=== PATIENT | female | born 1960 | race Caucasian/White ===

== ENCOUNTER 2017-07-27 19:05 | Emergency (ER) | payer OTHER ==
[~2017-07-27] VITALS: Ht 167.6 cm; Wt 79.0 kg
[2017-07-27 19:10] VITALS: Ht 167.6 cm; Wt 79.0 kg
[2017-07-27] MEDS ORDERED: ALBUTEROL 0.083% (NEB) 2.5 MG/3 ML AMP NEB STA (20:11)
[2017-07-27] MEDS ORDERED: DEXAMETHASONE 10 MG/ML 1 ML INJ IM STA (20:11)
[2017-07-27] MEDS ORDERED: IPRATROPIUM (NEB) 0.5 MG/2.5 ML AMP NEB STA (20:11)
--- NOTE | 2017-07-27 20:11 | ERD ---
ER Documentation Chief Complaint Chief Complaint cough x 2 weeks ,sob today HPI 57-year-old female presents to emergency department with 2 week history of cough , wheezing SOB, pt has asthma, on QVAR and albuterol ROS All systems reviewed and are negative except as per history of present illness. Allergies Allergies: Coded Allergies: almond (Verified Allergy, Unknown, 07/27/17) Physical Exam Vitals Vital Signs Date Time Temp Pulse Resp B/P Pulse Ox O2 Delivery O2 Flow Rate FiO2 07/27/17 20:45 103 20 95 21 07/27/17 20:35 Nasal Cannula 2 07/27/17 20:35 Nasal Cannula 2.0 07/27/17 19:10 99.3 109 20 176/98 96 Physical Exam Const: Well-nourished, well-appearing, 57-year-old female coughing, audible wheeze, in no acute distress, no tripoding. Head: Eyes: Normal Conjunctiva PERRLA, EOMI ENT: Normal External Ears, Nose and Mouth. Neck: Resp: Tight inspiratory expiratory wheeze, diminished bases, loose movable rhonchi with cough Cardio: Regular rate and rhythm, no murmurs Abd: Soft, non tender, non distended no epigastric tenderness Skin: Back: Ext: Neur: Awake and alert Psych: Normal Mood and Affect Result Diagram: 07/27/17 2100 Results 24 hrs Laboratory Tests Test 07/27/17 21:00 White Blood Count 11.010^3/ul Red Blood Count 5.3710^6/ul Hemoglobin 14.8g/dl Hematocrit 44.7% Mean Corpuscular Volume 83.2fl Mean Corpuscular Hemoglobin 27.6pg Mean Corpuscular Hemoglobin Concent 33.1g/dl Red Cell Distribution Width 13.5% Platelet Count 42760^3/UL Mean Platelet Volume 10.1fl Neutrophils % 51.7% Lymphocytes % 34.9% Monocytes % 6.4% Eosinophils % 6.2% Basophils % 0.4% Nucleated Red Blood Cells % 0.0/100WBC Neutrophils # 5.710^3/ul Lymphocytes # 3.810^3/ul Monocytes # 0.710^3/ul Eosinophils # 0.710^3/ul Basophils # 0.010^3/ul Nucleated Red Blood Cells # 0.010^3/ul Current Medications Medications (Trade) Dose Ordered Sig/Jaden Route PRN Reason Start Time Stop Time Status Last Admin Dose Admin Sodium Chloride (NS) 1,000 ml @ 1,000 mls/hr Q1H STAT IV 07/27/17 20:11 07/27/17 21:10 DC 07/27/17 20:30 Albuterol (Proventil 0.083% (Neb)) 5 mg ONCE STAT NEB 07/27/17 20:11 07/27/17 20:16 DC 07/27/17 20:46 Ipratropium [place] (Atrovent 0.02% (Neb)) 0.5 mg ONCE STAT NEB 07/27/17 20:11 07/27/17 20:16 DC 07/27/17 20:46 Dexamethasone (Decadron) 10 mg ONCE STAT IM 07/27/17 20:11 07/27/17 20:16 DC 07/27/17 20:26 Interpretation text CBC shows no evidence of hemorrhage WBC slightly elevated at 11 this is not a significant elevation. Procedures/MDM PROCEDURE: XR Chest. CLINICAL INDICATION: Shortness of breath TECHNIQUE: PA and Lateral views of the chest were obtained. COMPARISON: There are no similar studies submitted for comparison. FINDINGS: The heart is normal in size. The lungs are clear without evidence of infiltrate. There is no pleural effusion. No pneumothorax is identified. The osseous structures are intact. IMPRESSION: No evidence for acute cardiopulmonary disease. Electronically viewed and signed by .Artemio Murguia MD, MD on 07/27/2017 21:54 This 57-year-old female presents to emergency department for evaluation of cough , wheezing, shortness of breath 2 weeks, patient has history of asthma reports that symptoms have been exacerbated by current weather and possible upper respiratory infection, patient uses Qvar twice a day, and albuterol lately 4 times a day with little improvement of symptoms. Patient is fever, difficulty eating, difficulty staying hydrated, chills or chest pain palpitations, or dizziness.. Emergency room course includes history and physical exam positive for an exacerbation of asthma, with suboptimal treatment. Plan to give patient 10 mg of Decadron, patient will not be discharged home with steroids, Decadron the last for 48 hours. Albuterol, Atrovent, hand-held nebulized treatment, chest x-ray with radiologist interpretation negative for infiltrate, atelectasis , or consolidation. No cardiopulmonary disease. Laboratory serology negative for hemorrhage, WBCs 11 this is insignificant finding. Plan to discharge patient home with order for compressor, albuterol ampules 1 ampule every 4 hours as needed wheezing, and Pulmicort 1 puff twice daily, follow-up with primary care physician for reevaluation of asthma, return to emergency department for shortness of breath, chest pain, dizziness, or overall worsening of current symptoms. Patient is stable with no new complaints during ER course , clinically there is no current evidence to suggest meningitis, sepsis, acute abdomen, acute coronary syndromes, pulmonary embolism or any other emergent condition appearing to require further evaluation or hospitalization. I feel the patient is stable for discharge at this time. I have discussed results, examination findings, the treatment plan with the patient and family present prior to discharge. Indications for emergent reevaluation, side effects of medication were also discussed. All questions were answered. Patient verbalizes understanding and agrees with plan of care. Departure Diagnosis: Primary Impression: Asthma exacerbation Asthma severity: moderate Asthma persistence: persistent Qualified Code: J45.41 - Moderate persistent asthma with exacerbation Condition: Good Patient Instructions: Asthma, Acute (Adult), Controlling Asthma Triggers: Animals, Controlling Asthma Triggers: Irritants, Controlling Asthma Triggers: Other Additional Instructions: Thank you for for coming to [facility] for your care today. Please ask your nurse or provider if you have questions about your care today and do not leave until all your questions have been answered. Please use any medications given as directed and follow-up with your doctor (or the doctor you were referred to) in the next 2-3 days. If you do not have a primary care doctor you may follow up at the [facility] (listed below). You may also use motrin and tylenol as needed for fever and/or pain unless instructed otherwise by your provider or nurse. Indications for more urgent follow-up have been discussed, but you may return to the Emergency Department at ANY time for any worrisome or worsening symptoms. If you have abdominal pain, please know that no test or exam you received is perfect and you should follow up within 8 hours for continued pain. If you had any imaging studies today, such as an X-Ray or CT Scan, these studies will be reviewed later by a radiologist. You will be called if there are important findings that were not identified today, so make sure the contact information you provided at registration is correct. If you received any narcotic pain control medicine today, such as Vicodin, Morphine or Dilaudid, your coordination and judgment may be affected for a number of hours. Please do not drive or operate heavy machinery, and you may want someone to assist you at home. If you were given a prescription for narcotic medication, be aware that it is very addictive- use sparingly and only if necessary. LINCOLN FAIRCHILD Jul 27, 2017 20:11
[2017-07-27] MEDS: SOD CHLORIDE 0.9% 1,000 ML IV STA ×2 (20:30→20:38)
[2017-07-27 21:16] LABS: BASOPHILS % 0.4 % (0.0-2.0); EOSINOPHILS # 0.7 10^3/ul (0.0-0.5); EOSINOPHILS % 6.2 % (0.0-7.0); HEMATOCRIT 44.7 % (37.0-47.0); HEMOGLOBIN 14.8 g/dl (12.0-16.0); LYMPHOCYTES # 3.8 10^3/ul (0.8-2.9); LYMPHOCYTES % 34.9 % (15.0-51.0); MEAN CORPUSCULAR HEMOGLOBIN 27.6 pg (29.0-33.0); MEAN CORPUSCULAR HGB CONC 33.1 g/dl (32.0-37.0); MEAN CORPUSCULAR VOLUME 83.2 fl (82.0-101.0); MEAN PLATELET VOLUME 10.1 fl (7.4-10.4); MONOCYTE # 0.7 10^3/ul (0.3-0.9); MONOCYTES % 6.4 % (0.0-11.0); NEUTROPHIL # 5.7 10^3/ul (1.6-7.5); NEUTROPHILS % 51.7 % (39.0-77.0); PLATELET COUNT 354 10^3/UL (140-415); RED BLOOD COUNT 5.37 10^6/ul (4.20-5.40); RED CELL DISTRIBUTION WIDTH 13.5 % (11.5-14.5)
--- NOTE | 2017-07-27 21:54 | RADRPT ---
PROCEDURE: XR Chest. CLINICAL INDICATION: Shortness of breath TECHNIQUE: PA and Lateral views of the chest were obtained. COMPARISON: There are no similar studies submitted for comparison. FINDINGS: The heart is normal in size. The lungs are clear without evidence of infiltrate. There is no pleural effusion. No pneumothorax is identified. The osseous structures are intact. IMPRESSION: No evidence for acute cardiopulmonary disease. RPTAT: HIKT .Artemio Murguia MD, MD Date Time Electronically viewed and signed by .Artemio Murguia MD, on 07/27/2017 21:54 .T/
[2017-07-27] MEDS ORDERED: PULM180 INH (22:25)
[2017-07-27] MEDS ORDERED: ALBU2.5V3 NEB (22:25)
[2017-07-27] MEDS ORDERED: NEBU1KIT3 MC (22:26)
[2017-07-27] MEDS ORDERED: ALBU18HF INHALATION (22:26)
[2017-07-27 22:36] VITALS: BP 123/97; PULSE 89; RESP 20; TEMP 98.6
== END 2017-07-27 22:37 | disposition home or self-care (01) ==
LOC: FTE 19:05
DX: J45.41 Moderate persistent asthma with (acute) exacerbation (principal)
CPT/HCPCS: 71020; 85025; 86756; 87400; 94664; 96372; J1100; J7030; Z7502; Z7610